=== PATIENT | male | born 1980 | race Caucasian/White ===

== ENCOUNTER 2016-05-15 15:17 | Emergency (ER) | payer OTHER, MEDICAID ==
[~2016-05-15] VITALS: Ht 172.7 cm; Wt 81.8 kg
[2016-05-15] MEDS ORDERED: LEVETIRACETAM IV 1,000 MG in SOD CHLORIDE 0.9% 100 ML IVPB STA (15:22)
[2016-05-15 15:23] VITALS: Ht 172.7 cm; Wt 81.8 kg
[2016-05-15 15:41] LABS: BASOPHIL # 0.1 10^3/ul (0.0-0.1); BASOPHILS % 0.4 % (0.0-2.0); EOSINOPHILS # 0.2 10^3/ul (0.0-0.5); HEMATOCRIT 51.2 % (42.0-52.0); HEMOGLOBIN 17.4 g/dl (14.0-18.0); LYMPHOCYTES # 4.3 10^3/ul (0.8-2.9); LYMPHOCYTES % 25.6 % (15.0-51.0); MEAN CORPUSCULAR HEMOGLOBIN 30.3 pg (29.0-33.0); MEAN CORPUSCULAR VOLUME 89.2 fl (82.0-101.0); MEAN PLATELET VOLUME 8.4 fl (7.4-10.4); MONOCYTE # 1.4 10^3/ul (0.3-0.9); MONOCYTES % 8.2 % (0.0-11.0); NEUTROPHILS % 64.8 % (39.0-77.0); PLATELET COUNT 486 10^3/UL (140-440); RED BLOOD COUNT 5.75 10^6/ul (4.70-6.10); RED CELL DISTRIBUTION WIDTH 11.9 % (11.5-14.5); UNCORRECTED WBC 16.9 10^3/ul (4.8-10.8); WHITE BLOOD COUNT 16.9 10^3/ul (4.8-10.8)
--- NOTE | 2016-05-15 15:42 | ERA ---
ER Documentation Chief Complaint Date/Time DATE: 05/15/16 TIME: 15:41 Chief Complaint post-seizure HPI This is a 36-year-old male who presents to the emergency room after being brought in by ambulance from his rehabilitation center for evaluation of a seizure. According to EMS this patient does have a history of seizures, the patient is able to tell me that he is supposed to be taking Keppra but is unable to tell me if he takes it or not. Detailed history is unobtainable from patient secondary to his clinical condition. ROS All systems reviewed and are negative except as per history of present illness. Medications Home Meds Reported Medications Sucralfate* (Carafate*) 1 Gm/10 Ml Susp, 1 GM PO Q6H, EA 05/15/16 Ondansetron Hcl* (Zofran*) 4 Mg Tab, 4 MG PO Q4H Y for NAUSEA AND OR VOMITING, TAB 05/15/16 Prazosin Hcl* (Prazosin Hcl*) 1 Mg Capsule, 2 MG PO DAILY, CAP 05/15/16 Quetiapine Fumarate* (Seroquel*) 200 Mg Tablet, 700 MG PO DAILY, #30 TAB 05/15/16 Allergies Allergies: Coded Allergies: No Known Allergy (Unverified , 05/15/16) PMhx/Soc Medical and Surgical Hx: pt denies Surgical Hx Hx Neurological Disorder: No (denies) Hx Respiratory Disorders: No (denies) Hx Cardiac Disorders: No (denies) Hx Psychiatric Problems: Yes (anxiety) Hx Miscellaneous Medical Probl: No (denies) 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 EOMI. There is no scleral icterus. NECK: C-spine is soft and supple, there is no meningismus. There is no cervical lymphadenopathy. LUNGS: Clear to auscultation bilaterally. There are no rales, wheezes or rhonchi. HEART: Regular rate and rhythm, no murmurs, clicks, rubs or gallops. ABDOMEN: Soft, non-tender, non-distended. There are bowel sounds in all four quadrants. No rebound or guarding. EXTREMITIES: There is no peripheral cyanosis or edema. No focal swelling or erythema. NEUROLOGICAL: The patient moves all four extremities with 5/5 strength. Cranial nerves II - XII are intact. SKIN: There is no apparent rash or petechiae. HEME/LYMPHATIC: There is no evidence of excessive bruising or lymphedema. PSYCHIATRIC: The patient does not appear anxious or depressed. Result Diagram: 05/15/16 1536 05/15/16 1536 Results 24 hrs Laboratory Tests Test 05/15/16 15:30 05/15/16 15:36 05/15/16 16:39 Bedside Glucose 163mg/dL Acetaminophen Level < 10.0ug/ml Alanine Aminotransferase (ALT/SGPT) 19IU/L Albumin 4.9g/dl Albumin/Globulin Ratio 1.36 Alkaline Phosphatase 90IU/L Anion Gap 34 Aspartate Amino Transf (AST/SGOT) 33IU/L Basophils # 0.110^3/ul Basophils % 0.4% Blood Urea Nitrogen 16mg/dl Calcium Level 10.1mg/dl Carbon Dioxide Level 14mmol/L Chloride Level 100mmol/L Creatine Kinase 144IU/L Creatinine 1.13mg/dl Direct Bilirubin 0.00mg/dl Eosinophils # 0.210^3/ul Eosinophils % 1.0% Ethyl Alcohol Level < 10.0mg/dl Globulin 3.60g/dl Glucose Level 166mg/dl Hematocrit 51.2% Hemoglobin 17.4g/dl Indirect Bilirubin 0.6mg/dl Lymphocytes # 4.310^3/ul Lymphocytes % 25.6% Mean Corpuscular Hemoglobin 30.3pg Mean Corpuscular Hemoglobin Concent 34.0g/dl Mean Corpuscular Volume 89.2fl Mean Platelet Volume 8.4fl Monocytes # 1.410^3/ul Monocytes % 8.2% Neutrophils # 11.010^3/ul Neutrophils % 64.8% Nucleated Red Blood Cells # 0.010^3/ul Nucleated Red Blood Cells % 0.0/100WBC Platelet Count 61312^3/UL Potassium Level 3.7mmol/L Red Blood Count 5.7510^6/ul Red Cell Distribution Width 11.9% Salicylates Level < 1.0mg/dl Sodium Level 144mmol/L Total Bilirubin 0.6mg/dl Total Protein 8.5g/dl White Blood Count 16.910^3/ul Urine Amphetamines Screen Negative Urine Barbiturates Negative Urine Benzodiazepines Screen Positive Urine Cannabinoids Positive Urine Cocaine Screen Negative Urine Opiates Screen Negative Current Medications Medications (Trade) Dose Ordered Sig/Sandrine Route PRN Reason Start Time Stop Time Status Last Admin Dose Admin Sodium Chloride 1,000 ml @ 1,000 mls/hr Q1H STAT IV 05/15/16 15:19 05/15/16 16:18 DC 05/15/16 15:55 Levetiracetam/ Sodium Chloride (Keppra Iv/NS) 110 ml @ 400 mls/hr ONCE STAT IVPB 05/15/16 15:22 05/15/16 15:38 DC 05/15/16 15:56 Ondansetron HCl (Zofran Inj) 4 mg ONCE STAT IV 05/15/16 15:51 05/15/16 15:52 DC 05/15/16 15:55 Pantoprazole (Protonix Iv) 80 mg ONCE ONCE IV 05/15/16 16:00 05/15/16 16:01 DC 05/15/16 15:56 Lorazepam (Ativan) 2 mg ONCE ONCE IV 05/15/16 16:30 05/15/16 16:31 DC 05/15/16 16:29 Metoclopramide HCl (Reglan) 10 mg ONCE ONCE IV 05/15/16 16:30 05/15/16 16:31 DC 05/15/16 16:29 Procedures/MDM EKG: Rate/Rhythm: Sinus tachycardia QRS, ST, T-waves: [No changes consistent w/ acute ischemia] Impression: [No evidence of ischemia or arrhythmia] CT head: No bleed, no stroke Chest X-ray 1V Interpreted by me: Soft Tissue: No acute abnormalities Bones: No acute abnormalities Mediastinum/Cardiac Silhouette/Lungs: [No acute abnormalities] This 36-year-old male presents to the emergency room for evaluation of a seizure. This patient does have a history of seizures, and I was able to ascertain that he is on Keppra and took his dose of Keppra this morning. I did obtain lab work on this patient as he was tachycardic and postictal for a prolonged period. As we are waiting for his lab work to come back this patient started to vomit up coffee-ground emesis multiple times. The patient vomited up approximately 100 cc of his coffee-ground emesis. He was given Zofran, and Reglan, and also 80 mg of IV Protonix. This patient has controlled his vomiting at this time however given his acute onset of upper GI bleed I felt this patient would benefit from evaluation by a electronic pagination system operator. This patient does have a normal hemoglobin however this hemoglobin will not reflect an acute drop in his hemoglobin secondary to a GI bleed. I have contacted [facility] and spoke to Dr. Bhakta who accepts this patient. Departure Diagnosis: Primary Impression: Seizure disorder Additional Impression: Upper GI bleed Condition: Stable ASH WEI DO May 15, 2016 15:41
[2016-05-15 15:43] LABS: CONDITION 1
--- NOTE | 2016-05-15 15:50 | RADRPT ---
PROCEDURE: Chest Radiograph. CLINICAL INDICATION: Seizure TECHNIQUE: Single frontal chest radiograph. COMPARISON: None available FINDINGS: The cardiomediastinal silhouette is within normal limits. No infiltrate or effusion is seen. Th e bones are intact. IMPRESSION: 1. Unremarkable chest radiograph. RPTAT: KK .Dillan Zuluaga MD, MD Date Time Electronically viewed and signed by .Dillan Zuluaga MD, on 05/15/2016 15:50 .B/
[2016-05-15] MEDS: SOD CHLORIDE 0.9% 1,000 ML IV STA ×2 (15:51→15:55)
[2016-05-15] MEDS ORDERED: ONDANSETRON 4 MG INJ IV STA (15:51)
[2016-05-15] MEDS ORDERED: PANTOPRAZOLE 40 MG INJ IV ONE (16:00)
[2016-05-15 16:10] LABS: ALBUMIN 4.9 g/dl (3.3-4.9)
[2016-05-15 16:11] LABS: CHLORIDE 100 mmol/L (97-110); POTASSIUM 3.7 mmol/L (3.5-5.1); SODIUM 144 mmol/L (135-144)
[2016-05-15 16:13] LABS: ANION GAP 34 (8-16); BILIRUBIN,INDIRECT 0.6 mg/dl (0-1.1); BILIRUBIN,TOTAL 0.6 mg/dl (0.2-1.3); CARBON DIOXIDE 14 mmol/L (21-31); CREATININE 1.13 mg/dl (0.61-1.24)
[2016-05-15 16:14] LABS: ALANINE AMINOTRANSFERASE 19 IU/L (13-69); ALBUMIN/GLOBULIN RATIO 1.36; ALKALINE PHOSPHATASE 90 IU/L (42-121); ASPARTATE AMINO TRANSFERASE 33 IU/L (15-46); BLOOD UREA NITROGEN 16 mg/dl (7-20); CALCIUM 10.1 mg/dl (8.4-10.2); CREATINE KINASE 144 IU/L (23-200); GLUCOSE 166 mg/dl (70-220); TOTAL PROTEIN 8.5 g/dl (6.1-8.1)
[2016-05-15 16:16] LABS: ETHANOL < 10.0 mg/dl
[2016-05-15] MEDS ORDERED: METOCLOPRAMIDE 10 MG INJ IV ONE (16:30)
[2016-05-15] MEDS ORDERED: LORAZEPAM 2 MG INJ IV ONE (16:30)
[2016-05-15 16:31] LABS: ACETAMINOPHEN < 10.0 ug/ml (10.0-30.0); SALICYLATE < 1.0 mg/dl (5.0-30.0)
[2016-05-15] MEDS ORDERED: QUET200T23 PO (16:54)
[2016-05-15] MEDS ORDERED: PRAZ1CAP3 PO (16:55)
[2016-05-15] MEDS ORDERED: ONDA-43 PO (16:55)
[2016-05-15] MEDS ORDERED: CARAS PO (16:56)
--- NOTE | 2016-05-15 17:05 | RADRPT ---
PROCEDURE: CT Brain without contrast. CLINICAL INDICATION: Seizure. TECHNIQUE: A CT of the brain was performed on a GE Pivot[employer]pe[employer] Dish 64-slice CT scanner utilizing axial imaging from the skull base through the vertex without IV contrast. Multiplanar reformatted images were made. Images were reviewed on a PACS workstation. The CTDIvol is 44.95 mGy and the DLP is 720 .23 mGycm. One or the following dose reduction techniques were used: -Automated exposure control. -Adjustment of the mA and/or KV according to patient's size. -Use of iterative reconstruction technique COMPARISON: None FINDINGS: There is no intracranial hemorrhage, mass effect, or midline shift. No extra-axial fluid collection is seen. The ventricles and sulci are normal in size and configuration. The density of the brain is normal, and the castellanos white matter differentiation appears well-preserved. The visualized paranasal sinuses and osseous structures are grossly unremarkable. IMPRESSION: 1. No evidence of acute intracranial pathology. 2. The brain is normal in appearance. RPTAT: [facility] Physician Yomaira Date Time Electronically viewed and signed by Physician Yomaira on 05/15/2016 17:05 AUGUSTO/
[2016-05-15 17:36] LABS: CANNABINOIDS Positive (NEGATIVE)
[2016-05-15 17:38] LABS: BARBITURATES Negative (NEGATIVE); BENZODIAZEPINES Positive (NEGATIVE); COCAINE Negative (NEGATIVE); OPIATES Negative (NEGATIVE)
[2016-05-15] MEDS ORDERED: DICLOFENAC SODIUM 37.5 MG/ML VIAL IV STA (18:49)
[2016-05-15] MEDS ORDERED: KETOROLAC 30 MG INJ IM STA (18:54)
[2016-05-15] MEDS ORDERED: HYDROCODONE/APAP (5/325) TAB PO ONE (19:30)
[2016-05-15 19:43] VITALS: BP 123/58; PULSE 110; RESP 12; TEMP 98.7
== END 2016-05-15 20:00 | disposition short-term general hospital (02) ==
LOC: EDBD 15:17 → E/R 15:17
DX: G40.909 Epilepsy, unspecified, not intractable, without status epilepticus (principal); R40.2132 Coma scale, eyes open, to sound, at arrival to emergency department; K92.2 Gastrointestinal hemorrhage, unspecified; F17.210 Nicotine dependence, cigarettes, uncomplicated; R11.10 Vomiting, unspecified; R40.2242 Coma scale, best verbal response, confused conversation, at arrival to emergency department; R40.2362 Coma scale, best motor response, obeys commands, at arrival to emergency department
CPT/HCPCS: 36415; 70450; 71010; 80053; 80306; 80307; 82550; 82553; 82962; 84484; 85025; 93005; 96374; 96375; 99285; C9113; J1953; J2060; J2405; J2765; J7030

== ENCOUNTER 2016-05-21 21:17 | Emergency (ER) | payer OTHER, MEDICAID ==
[~2016-05-21] VITALS: Ht 177.8 cm; Wt 91.5 kg
[~2016-05-21 21:17] MED LIST: CARAS PO; ONDA-43 PO; PRAZ1CAP3 PO; QUET200T23 PO
[2016-05-21 21:22] VITALS: Ht 177.8 cm; Wt 91.5 kg
--- NOTE | 2016-05-21 21:26 | QN ---
Documentation Comment Patient was seen immediately upon arrival as the patient arrived by ambulance. The patient has a chief complaint of anxiety. The patient will be sent to triage for vital signs and will be seen by another provider. Medical screening exam was initiated. JOHN BERRIOS MD May 21, 2016 21:26
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
[2016-05-21] MEDS ORDERED: HALOPERIDOL 5 MG INJ IM ONE (23:00)
[2016-05-21 23:11] LABS: BASOPHILS % 0.5 % (0.0-2.0); EOSINOPHILS # 0.2 10^3/ul (0.0-0.5); EOSINOPHILS % 1.8 % (0.0-7.0); HEMATOCRIT 43.1 % (42.0-52.0); HEMOGLOBIN 14.5 g/dl (14.0-18.0); LYMPHOCYTES # 1.9 10^3/ul (0.8-2.9); LYMPHOCYTES % 21.5 % (15.0-51.0); MEAN CORPUSCULAR HEMOGLOBIN 30.1 pg (29.0-33.0); MEAN CORPUSCULAR HGB CONC 33.6 g/dl (32.0-37.0); MEAN CORPUSCULAR VOLUME 89.8 fl (82.0-101.0); MEAN PLATELET VOLUME 8.5 fl (7.4-10.4); MONOCYTE # 0.8 10^3/ul (0.3-0.9); MONOCYTES % 9.4 % (0.0-11.0); NEUTROPHILS % 66.8 % (39.0-77.0); PLATELET COUNT 290 10^3/UL (140-440); RED CELL DISTRIBUTION WIDTH 11.8 % (11.5-14.5); UNCORRECTED WBC 8.9 10^3/ul (4.8-10.8); WHITE BLOOD COUNT 8.9 10^3/ul (4.8-10.8)
[2016-05-21 23:12] LABS: CONDITION 1
[2016-05-21 23:13] LABS: URINE BILIRUBIN (Dip) 1+ (NEGATIVE); URINE BLOOD (Dip) NEGATIVE (NEGATIVE); URINE COLOR YELLOW (YELLOW); URINE GLUCOSE (Dip) NEGATIVE (NEGATIVE); URINE KETONES (Dip) NEGATIVE (NEGATIVE); URINE LEUKOCYTE ESTERASE (Dip) NEGATIVE (NEGATIVE); URINE NITRITE (Dip) NEGATIVE (NEGATIVE); URINE UROBILINOGEN (Dip) 1.0 E.U./dL (0.1-1.0)
[2016-05-21 23:15] LABS: ADD UMIC NO; URINE TOTAL PROTEIN (Dip) NEGATIVE (NEGATIVE)
[2016-05-21 23:20] LABS: ALBUMIN 4.2 g/dl (3.3-4.9); CHLORIDE 102 mmol/L (97-110)
[2016-05-21 23:21] LABS: POTASSIUM 3.9 mmol/L (3.5-5.1); SODIUM 142 mmol/L (135-144)
[2016-05-21 23:23] LABS: ICTOTEST NEGATIVE (NEGATIVE)
[2016-05-21 23:23] LABS: ALBUMIN/GLOBULIN RATIO 1.31; ALKALINE PHOSPHATASE 77 IU/L (42-121); ANION GAP 14 (8-16); ASPARTATE AMINO TRANSFERASE 54 IU/L (15-46); BILIRUBIN,INDIRECT 0.5 mg/dl (0-1.1); BILIRUBIN,TOTAL 0.5 mg/dl (0.2-1.3); BLOOD UREA NITROGEN 16 mg/dl (7-20); CARBON DIOXIDE 30 mmol/L (21-31); CREATININE 0.93 mg/dl (0.61-1.24); TOTAL PROTEIN 7.4 g/dl (6.1-8.1)
[2016-05-21 23:24] LABS: ALANINE AMINOTRANSFERASE 35 IU/L (13-69); CALCIUM 9.4 mg/dl (8.4-10.2); GLUCOSE 81 mg/dl (70-220)
[2016-05-21 23:34] LABS: ACETAMINOPHEN < 10.0 ug/ml (10.0-30.0); ETHANOL < 10.0 mg/dl; SALICYLATE < 1.0 mg/dl (5.0-30.0)
[2016-05-21 23:34] LABS: BARBITURATES Negative (NEGATIVE); BENZODIAZEPINES Positive (NEGATIVE); CANNABINOIDS Positive (NEGATIVE); COCAINE Negative (NEGATIVE); OPIATES Negative (NEGATIVE)
--- NOTE | 2016-05-22 00:05 | RADRPT ---
PROCEDURE: CT Brain without contrast. CLINICAL INDICATION: Altered mental status. TECHNIQUE: A CT of the brain was performed utilizing axial sections from the skull base through th e vertex without contrast. Multiplanar re-formations were generated. Images were reviewed on a high- resolution PACS workstation. CTDIvol: 49.01 mGy. DLP: 810.25 mGy-cm. COMPARISON: None available FINDINGS: There is no cerebral volume loss. No hydrocephalus is seen. There is no mass effect. No acute intrac ranial hemorrhage is identified. There is no extra-axial collection. Moreno-white matter differentiati on is preserved. There is no significant mucosal disease in the paranasal sinuses. The visualized mastoid air cells are clear. The ossesous structures are unremarkable. The extracranial soft tissues are unremarkable. IMPRESSION: 1. No acute intracranial pathology. RPTAT: HTAR .Valdo Edwards MD, Date Time Electronically viewed and signed by .Valdo Edwards MD, on 05/22/2016 00:05 .R/
[2016-05-22 14:09] VITALS: BP 129/78; PULSE 80; RESP 20; TEMP 97.9
== END 2016-05-22 14:15 ==
LOC: E/R 21:17
DX: F29 Unspecified psychosis not due to a substance or known physiological condition (principal); I10 Essential (primary) hypertension
CPT/HCPCS: 36415; 70450; 80053; 80306; 80307; 81003; 85025; 96372; 99285; J1630